=== PATIENT | male | born 1940 | race Caucasian/White ===

== ENCOUNTER 2021-05-24 15:58 | Emergency (ER) | payer OTHER ==
[2021-05-24] MEDS ORDERED: FENTANYL CITR 100 MCG/2 ML ONE (16:39)
--- NOTE | 2021-05-24 16:57 | RAD REPORT ---
EXAM DESCRIPTION: RAD - Hip Left 2 View - 05/24/2021 4:36 pm CLINICAL HISTORY: PAIN COMPARISON: No comparisons FINDINGS: Portable AP and semi lateral images of the left hip joint obtained. 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 The femoral head has been dislocated superiorly from the abbi tabular cup. No fracture of the iroquois bone identifiable. IMPRESSION: Dislocation of the left femoral prosthesis from the acetabulum.
[2021-05-24] MEDS ORDERED: HYDROMORPHONE HCL 1 MG/ML INJ ONE (16:58)
[2021-05-24] MEDS ORDERED: KETAMINE HCL 500 MG/5 ML VIAL ONE (17:16)
[2021-05-24] MEDS ORDERED: propofoL 200 MG/20 ML VIAL IV ONE (17:16)
[2021-05-24] MEDS ORDERED: NA CHLORIDE 0.9% 1,000 ML ONE (17:18)
--- NOTE | 2021-05-24 18:11 | RAD REPORT ---
EXAM DESCRIPTION: RAD - Hip Left 1 View - 05/24/2021 5:38 pm FINDINGS: Single image of the left hip joint was obtained labeled post reduction. Femoral head remains dislocated superiorly from the acetabular cup.
--- NOTE | 2021-05-24 18:58 | ER ---
Nurse's Notes [facility] Name: Brian Avalos Age: 80 yrs Sex: Male : 1940 Arrival Date: 05/24/2021 Time: 16:00 Bed 16 Private MD: Diagnosis: Dislocation of internal left hip prosthesis, initial encounter Presentation: 05/24 16:01 Chief complaint: EMS states: MECHANICAL FALL AT HOME, NO SYNCOPE. Care prior to bp arrival: Medication(s) given: FENTANYL 100 MCG IV initiated. 20 GA, in the left antecubital area. Mechanism of Injury: Fall from standing position. Trauma event details: Injury occurred in the [facility], Injury occurred: at home. Injury occurred: May 24, 2021 Injury occurred at: 15:30. 16:01 Acuity: AUNG 3 bp 16:01 Method Of Arrival: EMS: [facility] bp 18:04 Coronavirus screen: At this time, the client does not indicate any symptoms associated bp with coronavirus-19. Ebola Screen: No symptoms or risks identified at this time. Initial Sepsis Screen: Does the patient meet any 2 criteria? No. Patient's initial sepsis screen is negative. Does the patient have a suspected source of infection? No. Patient's initial sepsis screen is negative. Risk Assessment: Do you want to hurt yourself or someone else? Patient reports no desire to harm self or others. Onset of symptoms was May 24, 2021 at 15:30. Triage Assessment: 16:10 General: SEE TRAUMA NOTE. bp Trauma Activation: Consult Physician: ED Physician; Name: ; Notified At: ; Arrived At: Physician: General Surgeon; Name: ; Notified At: ; Arrived At: Physician: Radiology; Name: ; Notified At: ; Arrived At: Physician: Respiratory; Name: ; Notified At: ; Arrived At: Physician: Lab; Name: ; Notified At: ; Arrived At: Historical: - Allergies: 18:06 No Known Allergies; bp - Home Meds: 18:06 None [Active]; bp - PMHx: 18:06 Hyperlipidemia; bp - Immunization history: Last tetanus immunization: unknown. - Social history:: Smoking status: Patient denies any tobacco usage or history of. Screenin:45 Abuse screen: Denies threats or abuse. Denies injuries from another. Tuberculosis bp screening: No symptoms or risk factors identified. Primary Survey: 16:01 NO uncontrolled hemorrhage observed. A: The patient is alert. Airway: patent. bp Breathing/Chest: Respiratory pattern: regular, Respiratory effort: spontaneous, unlabored. Circulation: Skin color: pink, Skin temperature: warm, dry. Disability Alert. Exposure/Environment: There is no evidence of uncontrolled external bleeding. 18:03 Reassessment Airway Airway Patent Breathing/Chest Respiratory pattern Regular bp Respiratory effort Spontaneous Unlabored Circulation Color [place]. Assessment: 16:01 General: Appears distressed, uncomfortable, Behavior is cooperative, appropriate for bp age, anxious. Pain: Complains of pain in left hip. Neuro: No deficits noted. EENT: No deficits noted. Cardiovascular: No deficits noted. Respiratory: No deficits noted. GI: No signs and/or symptoms were reported involving the gastrointestinal system. : No signs and/or symptoms were reported regarding the genitourinary system. Derm: No deficits noted. Musculoskeletal: Circulation, motion, and sensation intact. LEFT HIP. 17:00 Reassessment: PT CONSENTED FOR CLOSED LEFT HIP REDUCTION WITH CONSCIOUS SEDATION. PT bp PLACED ON NIBP, EKG AND CONTINUOUS SP02. BVM AND CRASH CART AT B/S. PT UNABLE TO SIGN, VERBALLY WITNESSED FOR CONSENT. 18:00 Reassessment: No changes from previously documented assessment. Patient and/or family bp updated on plan of care and expected duration. Pain level reassessed. Patient is alert, oriented x 3, equal unlabored respirations, skin warm/dry/pink. DISPO ON HOLD PENDING [facility] RESPONSE Patient states feeling better. 19:26 Reassessment: REPORT TO MED YEE FOR [facility]. TRANSPORT PNDING. bp 19:26 Reassessment: Received care of pt at this time. Pt awake and alert, reports continued ad5 pain to L hip. Pt with blood noted to IV site, removed and bandage applied at this time, catheter intact. New IV est to R AC,18g, flushes with ease. Vital Signs: 16:45 BP 85 / 65; Pulse 69; Resp 16; Temp 97.5; Pulse Ox 99% ; Weight 99.79 kg; bp 17:00 BP 133 / 75; Pulse 73; Resp 17; Temp 98; Pulse Ox 98% ; bp 18:00 BP 91 / 71; Pulse 62; Resp 25; Temp 98; Pulse Ox 100% ; bp 19:30 BP 109 / 98; Pulse 63; Resp 18 S; Pulse Ox 97% on R/A; ad5 Maria Del Carmen Coma Score: 16:45 Eye Response: spontaneous(4). Verbal Response: oriented(5). Motor Response: obeys bp commands(6). Total: 15. Trauma Score (Adult): 16:45 Eye Response: spontaneous(1); Verbal Response: oriented(1); Motor Response: obeys bp commands(2); Systolic BP: > 89 mm Hg(4); Respiratory Rate: 10 to 29 per min(4); Montezuma Score: 15; Trauma Score: 12 ED Course: 16:00 Patient arrived in ED. bp 16:01 Maintain EMS IV. Dressing intact. Good blood return noted. Site clean \T\ dry. Gauge \T\ bp site: 20 GAUGE LEFT FA. 16:02 [facility] jr8 16:02 Robert Cook MD is Attending Physician. jr8 16:04 Triage completed. bp 16:36 XRAY Hip LEFT 2 view In Process Unspecified. EDMS 16:44 Cristo Link, RN is Primary Nurse. bp 16:45 Patient has correct armband on for positive identification. Bed in low position. Call bp light in reach. Side rails up X2. 17:36 initiated transfer to [facility],spoke with Giuliana. bd 17:38 XRAY Hip LEFT 1 view In Process Unspecified. EDMS 18:03 Oxygen administration via nasal cannula \T\ 2L/min. Thermoregulation: warm blanket given bp to patient. 18:29 faxed chart to [facility]. bd 19:37 Primary Nurse role handed off by Cristo Link, RN mw2 20:01 No provider procedures requiring assistance completed. Patient transferred, IV remains ad5 in place. Administered Medications: 16:15 Drug: fentaNYL (PF) 75 mcg Route: IVP; Site: left forearm; bp 18:02 Follow up: Response: Pain is decreased bp 16:35 Drug: Dilaudid (HYDROmorphone) 1 mg Route: IVP; Site: left forearm; bp 18:02 Follow up: Response: Pain is decreased bp 17:00 Drug: NS 0.9% 1000 ml Route: IV; Rate: 1000 ml; Site: left forearm; bp 19:59 Follow up: IV Status: Completed infusion; IV Intake: 1000ml ad5 17:00 Drug: Propofol 100 mg Route: IVP; Site: left forearm; bp 19:59 Follow up: Response: No adverse reaction ad5 17:00 Drug: Ketamine 100 mg Route: IVP; Site: left forearm; bp 19:59 Follow up: Response: No adverse reaction ad5 19:50 Drug: Dilaudid (HYDROmorphone) 0.5 mg Route: IVP; Site: right antecubital; ad5 19:59 Follow up: Response: No adverse reaction; RASS: Alert and Calm (0) ad5 Intake: 16:45 PO: 0ml; Total: 0ml. bp 19:59 IV: 1000ml; Total: 1000ml. ad5 Output: 16:45 Urine: 0ml; Total: 0ml. bp Outcome: 18:57 ER care complete, transfer ordered by MD. teran 20:01 Transferred to [facility]. ad5 20:01 Condition: stable 20:01 Instructed on the need for transfer, Demonstrated understanding of instructions. 20:02 Patient left the ED. ad5 Signatures: Dispatcher [employer] EDMS Ashlee Veliz Josh, PA PA jr8 Cristo Link RN RN bp Sofie Ortiz mw2 Gabriel Howard ad5 Corrections: (The following items were deleted from the chart) 18:42 18:00 Reassessment: No changes from previously documented assessment. Patient and/or bp family updated on plan of care and expected duration. Pain level reassessed. Patient is alert, oriented x 3, equal unlabored respirations, skin warm/dry/pink. DISPO ON HOLD PENDING DR MCKINNEY bp 18:43 16:45 BP 85 / 65; Pulse 69bpm; Resp 16bpm; Pulse Ox 99%; Temp 97.5F; bp bp
--- NOTE | 2021-05-24 18:58 | EDPHYS ---
Physician Documentation [facility] Name: Brian Avalos Age: 80 yrs Sex: Male : 1940 Arrival Date: 05/24/2021 Time: 16:00 Bed 16 Private MD: ED Physician Robert Cook HPI: 05/24 17:37 This 80 yrs old Male presents to ER via EMS with complaints of Fall Injury, jr8 Hip Injury. 17:37 Onset: The symptoms/episode began/occurred acutely, today. Severity of symptoms: At jr8 their worst the symptoms were moderate, in the emergency department the symptoms are unchanged. The patient has experienced similar episodes in the past, several times. The patient has not recently seen a physician. Patient stated that he had hip prosthetic put in the past February. Stated that he twisted and felt hip dislocate. Fell to ground. Denies any other injury. Historical: - Allergies: 18:06 No Known Allergies; bp - Home Meds: 18:06 None [Active]; bp - PMHx: 18:06 Hyperlipidemia; bp - Immunization history: Last tetanus immunization: unknown. - Social history:: Smoking status: Patient denies any tobacco usage or history of. ROS: 17:37 Eyes: Negative for injury, pain, redness, and discharge, ENT: Negative for injury, jr8 pain, and discharge, Neck: Negative for injury, pain, and swelling, Cardiovascular: Negative for chest pain, palpitations, and edema, Respiratory: Negative for shortness of breath, cough, wheezing, and pleuritic chest pain, Abdomen/GI: Negative for abdominal pain, nausea, vomiting, diarrhea, and constipation, Back: Negative for injury and pain, Skin: Negative for injury, rash, and discoloration, Neuro: Negative for headache, weakness, numbness, tingling, and seizure. 17:37 MS/extremity: Positive for decreased range of motion, deformity, pain, of the left hip. Exam: 17:37 Constitutional: This is a well developed, well nourished patient who is awake, alert, jr8 and in no acute distress. Neck: Trachea midline, no thyromegaly or masses palpated, and no cervical lymphadenopathy. Supple, full range of motion without nuchal rigidity, or vertebral point tenderness. No Meningismus. Cardiovascular: Regular rate and rhythm with a normal S1 and S2. No gallops, murmurs, or rubs. Normal PMI, no JVD. No pulse deficits. Respiratory: Lungs have equal breath sounds bilaterally, clear to auscultation and percussion. No rales, rhonchi or wheezes noted. No increased work of breathing, no retractions or nasal flaring. Abdomen/GI: Soft, non-tender, with normal bowel sounds. No distension or tympany. No guarding or rebound. No evidence of tenderness throughout. Back: No spinal tenderness. No costovertebral tenderness. Full range of motion. Skin: Warm, dry with normal turgor. Normal color with no rashes, no lesions, and no evidence of cellulitis. Neuro: Awake and alert, GCS 15, oriented to person, place, time, and situation. Cranial nerves II-XII grossly intact. Motor strength 5/5 in all extremities. Sensory grossly intact. 17:37 Musculoskeletal/extremity: Extremities: grossly normal except: noted in the left leg: Patient has shortening and internal rotation of left hip with pain upon manipulation. No external signs of trauma , Circulation is intact in all extremities. Sensation intact. Vital Signs: 16:45 BP 85 / 65; Pulse 69; Resp 16; Temp 97.5; Pulse Ox 99% ; Weight 99.79 kg; bp 17:00 BP 133 / 75; Pulse 73; Resp 17; Temp 98; Pulse Ox 98% ; bp 18:00 BP 91 / 71; Pulse 62; Resp 25; Temp 98; Pulse Ox 100% ; bp 19:30 BP 109 / 98; Pulse 63; Resp 18 S; Pulse Ox 97% on R/A; ad5 Maria Del Carmen Coma Score: 16:45 Eye Response: spontaneous(4). Verbal Response: oriented(5). Motor Response: obeys bp commands(6). Total: 15. Trauma Score (Adult): 16:45 Eye Response: spontaneous(1); Verbal Response: oriented(1); Motor Response: obeys bp commands(2); Systolic BP: > 89 mm Hg(4); Respiratory Rate: 10 to 29 per min(4); Maria Del Carmen Score: 15; Trauma Score: 12 Procedures: 17:37 Reduction: of the left hip, using traction, manipulation, Patient tolerated well. Post jr8 reduction film - hip prosthetic still out of place regardless of multiple attempts. Moderate sedation: Pre-procedure assessment: the patient has been NPO 4 hour(s) prior to arrival, ASA physical classification: II - mild/mod systemic disease that does not interfere with daily routines, Airway assessment: able to hyperextend neck, able to maintain airway, can open mouth without difficulty, Mallampati classification of tongue size: II - faucial pillars and soft palate can be visualized, but uvula is masked by the base of the tongue, Monitoring during procedure: gambling monitor, continuous pulse oximetry, nurse at bedside at all times, Medications employed: Ketamine, 90 mg(s), propofol , Post-procedure assessment: the patient is deeply sedated, Mahoney sedation score: 6 - no response, Respiratory status: requires supplemental oxygen to maintain acceptable oxygen saturation, a reversal agent was not used. MDM: 16:02 Patient medically screened. jr8 17:37 ED course: Attempting transfer to [place] as we are not able to put hip back in . jr8 18:55 Data reviewed: vital signs, nurses notes, radiologic studies, plain films. Data jr8 interpreted: Pulse oximetry: on room air is 100 %. Interpretation: normal. Counseling: I had a detailed discussion with the patient and/or guardian regarding: the historical points, exam findings, and any diagnostic results supporting the discharge/admit diagnosis, radiology results, the need to transfer to another facility, [facility] does not immediately have the required specialist. 05/24 16:02 Order name: XRAY Hip LEFT 2 view; Complete Time: 17:35 jr8 05/24 17:17 Order name: XRAY Hip LEFT 1 view; Complete Time: 18:32 05/24 16:35 Order name: Conscious Sedation; Complete Time: 18:02 jr8 05/24 16:35 Order name: Cardiac monitoring; Complete Time: 18:02 jr8 05/24 16:35 Order name: Oxygen; Complete Time: 18:01 jr8 Administered Medications: 16:15 Drug: fentaNYL (PF) 75 mcg Route: IVP; Site: left forearm; bp 18:02 Follow up: Response: Pain is decreased bp 16:35 Drug: Dilaudid (HYDROmorphone) 1 mg Route: IVP; Site: left forearm; bp 18:02 Follow up: Response: Pain is decreased bp 17:00 Drug: NS 0.9% 1000 ml Route: IV; Rate: 1000 ml; Site: left forearm; bp 19:59 Follow up: IV Status: Completed infusion; IV Intake: 1000ml ad5 17:00 Drug: Propofol 100 mg Route: IVP; Site: left forearm; bp 19:59 Follow up: Response: No adverse reaction ad5 17:00 Drug: Ketamine 100 mg Route: IVP; Site: left forearm; bp 19:59 Follow up: Response: No adverse reaction ad5 19:50 Drug: Dilaudid (HYDROmorphone) 0.5 mg Route: IVP; Site: right antecubital; ad5 19:59 Follow up: Response: No adverse reaction; RASS: Alert and Calm (0) ad5 Disposition: 05/25 08:44 Co-signature as Attending Physician, Robert Cook MD I agree with the assessment and kdr plan of care. Disposition Summary: 05/24/21 18:57 Transfer Ordered Transfer Location: [facility] Reason: Higher level of care jr8 Condition: Stable jr8 Problem: new jr8 Symptoms: are unchanged jr8 Accepting Physician: Dr. John (05/24/21 20:02) ad5 Diagnosis - Dislocation of internal left hip prosthesis, initial encounter jr8 Forms: - Medication Reconciliation Form jr8 - SBAR form jr8 Signatures: Dispatcher [employer] EDRobert Benitez MD MD kdr Roszak, Josh, PA PA jr8 Cristo Link RN RN Gabriel Smith ad5 Corrections: (The following items were deleted from the chart) 05/24 20:02 18:57 Dr. John jr8 ad5
[2021-05-24] MEDS ORDERED: HYDROMORPHONE HCL 0.5 MG/0.5 ML INJ ONE (20:10)
[2021-05-24 20:44] VITALS: TEMP 98
[2021-05-24 20:50] VITALS: BP 109/98; O2SAT 97
== END 2021-05-24 20:02 ==
LOC: ER 15:58
PROC: 0SSBXZZ Reposition Left Hip Joint, External Approach (ICD-10-PCS; principal; 2021-05-24)
DX: T84.021A Dislocation of internal left hip prosthesis, initial encounter (principal); W19.XXXA Unspecified fall, initial encounter; E78.5 Hyperlipidemia, unspecified
CPT/HCPCS: 73502; 73501; 99285; 27252; J2704; J3010; J1170 ×2; J7030

== ENCOUNTER 2021-06-25 23:43 | Inpatient (IN) | payer OTHER ==
[2021-06-26 00:55] LABS: Absolute Lymphocytes (CBC) 0.8 K/uL (0.7-4.9); Basophils % 0.6 % (0-1.3); Hematocrit 28.5 % (39.6-49.0); Lymphocytes % 26.6 % (15.3-44.8); MPV 7.7 fL (7.6-11.3); RBC Red Blood Cell Count 2.97 M/uL (4.33-5.43)
[2021-06-26 01:01] LABS: Potassium 4.8 mmol/L (3.5-5.1)
[2021-06-26] MEDS ORDERED: ONDANSETRON 4 MG/2 ML VIAL ONE (01:20)
[2021-06-26] MEDS ORDERED: MORPHINE 2 MG/ML SYR ONE ×3 (01:24→07:39)
[2021-06-26] MEDS ORDERED: NA CHLORIDE 0.9% 1,000 ML ONE (04:43)
--- NOTE | 2021-06-26 07:35 | EDPHYS ---
Physician Documentation [facility] Name: Brian Avalos Age: 80 yrs Sex: Male : 1940 Arrival Date: 06/25/2021 Time: 23:44 Bed 5 Private MD: ED Physician Robert Cook HPI: 06/25 23:58 This 80 yrs old Male presents to ER via EMS with complaints of Hip Injury. pkl 23:58 The patient or guardian reports pain. The complaints affect the left hip. Onset: The pkl symptoms/episode began/occurred just prior to arrival. Patient had left hip replacement done at [facility] about 4 months ago. Had dislocation of his left hip 1 month after surgery. . 06/26 00:03 Patient was reaching to put something in the cabinet tonight and felt his left pop out. pkl Historical: - Allergies: 06/25 23:51 No Known Allergies; tr6 - Home Meds: 23:51 Unable to obtain [Active]; tr6 - PMHx: 23:51 Hyperlipidemia; tr6 - PSHx: 23:51 hip replacement; tr6 - Immunization history:: Adult Immunizations up to date, Client reports receiving the 2nd dose of the Covid vaccine. - Social history:: Smoking status: unknown. ROS: 23:58 Eyes: Negative for injury, pain, redness, and discharge, ENT: Negative for injury, pkl pain, and discharge, Neck: Negative for injury, pain, and swelling, Cardiovascular: Negative for chest pain, palpitations, and edema, Respiratory: Negative for shortness of breath, cough, wheezing, and pleuritic chest pain, Abdomen/GI: Negative for abdominal pain, nausea, vomiting, diarrhea, and constipation, Back: Negative for injury and pain, : Negative for injury, bleeding, discharge, and swelling, Skin: Negative for injury, rash, and discoloration, Neuro: Negative for headache, weakness, numbness, tingling, and seizure. 23:58 MS/extremity: Positive for decreased range of motion, pain, of the left hip. Exam: 06/26 00:03 Head/Face: Normocephalic, atraumatic. Eyes: Pupils equal round and reactive to light, pkl extra-ocular motions intact. Lids and lashes normal. Conjunctiva and sclera are non-icteric and not injected. Cornea within normal limits. Periorbital areas with no swelling, redness, or edema. ENT: Nares patent. No nasal discharge, no septal abnormalities noted. Tympanic membranes are normal and external auditory canals are clear. Oropharynx with no redness, swelling, or masses, exudates, or evidence of obstruction, uvula midline. Mucous membranes moist. Neck: Trachea midline, no thyromegaly or masses palpated, and no cervical lymphadenopathy. Supple, full range of motion without nuchal rigidity, or vertebral point tenderness. No Meningismus. Chest/axilla: Normal chest wall appearance and motion. Nontender with no deformity. No lesions are appreciated. Cardiovascular: Regular rate and rhythm with a normal S1 and S2. No gallops, murmurs, or rubs. Normal PMI, no JVD. No pulse deficits. Respiratory: Lungs have equal breath sounds bilaterally, clear to auscultation and percussion. No rales, rhonchi or wheezes noted. No increased work of breathing, no retractions or nasal flaring. Abdomen/GI: Soft, non-tender, with normal bowel sounds. No distension or tympany. No guarding or rebound. No evidence of tenderness throughout. Back: No spinal tenderness. No costovertebral tenderness. Full range of motion. Skin: Warm, dry with normal turgor. Normal color with no rashes, no lesions, and no evidence of cellulitis. Neuro: Awake and alert, GCS 15, oriented to person, place, time, and situation. Cranial nerves II-XII grossly intact. Motor strength 5/5 in all extremities. Sensory grossly intact. Cerebellar exam normal. Normal gait. Musculoskeletal/extremity: Extremities: grossly normal except: noted in the left hip: decreased ROM, pain. Vital Signs: 06/25 23:49 BP 132 / 83; Pulse 78; Resp 18; Temp 98.7(O); Pulse Ox 100% on R/A; Weight 81.65 kg; tr6 Height 5 ft. 10 in. (177.80 cm); 06/26 00:29 BP 123 / 76; Pulse 77; Resp 18; Pulse Ox 99% ; ea 02:01 BP 120 / 68; Pulse 59; Resp 16; Pulse Ox 99% on R/A; em 03:22 BP 114 / 69; Pulse 61; Resp 18; Pulse Ox 99% on R/A; Pain 8/10; em 04:43 BP 133 / 79; Pulse 72; Resp 18; Pulse Ox 100% on R/A; ea 05:31 BP 115 / 66; Pulse 67; Resp 16; Pulse Ox 99% on R/A; em 06:36 BP 117 / 65; Pulse 71; Resp 16; Pulse Ox 100% on R/A; em 07:14 BP 104 / 65; Pulse 62; Resp 20 S; Temp 98.5(TE); Pulse Ox 100% on R/A; Pain 9/10; aa5 08:20 BP 108 / 64; Pulse 68; Resp 18 S; Pulse Ox 97% on R/A; aa5 09:00 BP 114 / 88; Pulse 73; Resp 16 S; Pulse Ox 96% on R/A; aa5 06/25 23:49 Body Mass Index 25.83 (81.65 kg, 177.80 cm) tr6 MDM: 06/25 23:50 Patient medically screened. pkl 06/26 07:32 Data reviewed: vital signs, nurses notes, lab test result(s), EKG, radiologic studies, pkl plain films. ED course: Talked to Dr. Fuentes, for observation under Hospitalist. 08:02 ED course: Patient continues to be stable in the ED. We are awaiting callback from the [facility]. Dr. Fuentes has been contacted and has agreed to see the patient if [facility]. 06/25 23:56 Order name: CBC with Diff pkl 06/25 23:56 Order name: Chem 7 pkl 06/25 23:56 Order name: CBC with Automated Diff; Complete Time: 03:12 EDMS 06/25 23:57 Order name: Basic Metabolic Panel; Complete Time: 03:12 EDMS 06/26 07:30 Order name: SARS-COV-2 RT PCR; Complete Time: 07:30 EDMS 06/26 10:13 Order name: Basic Metabolic Panel EDMS 06/26 10:13 Order name: Basic Metabolic Panel EDMS 06/26 10:13 Order name: Lipid Profile EDMS 06/26 10:13 Order name: Lipid Profile EDMS 06/26 10:14 Order name: CBC with Automated Diff EDMS 06/26 10:14 Order name: CBC with Automated Diff EDMS 06/26 10:14 Order name: Urinalysis EDMS 06/26 10:16 Order name: Hemoglobin A1c EDMS 06/25 23:56 Order name: Saline Lock; Complete Time: 00:12 pkl 06/25 23:56 Order name: Hip Left 2 View XRAY pkl 06/26 07:31 Order name: EKG; Complete Time: 07:32 pkl 06/26 07:31 Order name: XRAY CXR (1 view) pkl 06/26 09:51 Order name: NPO EDMS Administered Medications: 01:03 Drug: morphine 2 mg Route: IVP; Site: left antecubital; em 02:28 Follow up: Response: No adverse reaction; Marked relief of symptoms em 01:03 Drug: Zofran (Ondansetron) 4 mg Route: IVP; Site: left antecubital; em 02:28 Follow up: Response: No adverse reaction em 04:31 Drug: morphine 2 mg Route: IVP; Site: left antecubital; em 06:10 Follow up: Response: No adverse reaction; Marked relief of symptoms; Pain is decreased em 04:33 Drug: NS 0.9% 1000 ml Route: IV; Rate: 100 ml/hr; Site: left antecubital; em 07:17 Drug: morphine 2 mg Route: IVP; Site: left antecubital; aa5 Disposition Summary: 06/26/21 07:34 Hospitalization Ordered Hospitalization Status: Observation pkl Provider: Martin Weber pkwendy Condition: Stable pkl Problem: new pkl Symptoms: are unchanged pkl Bed/Room Type: Standard pkl Location: [facility] ER HOLD(06/26/21 13:45) aa5 Room Assignment: ERHOLD-(06/26/21 13:46) aa5 Diagnosis - Dislocation left hip pkl Forms: - Medication Reconciliation Form pkl - SBAR form pkl Signatures: Dispatcher [employer] EDMohsen Greer MD MD pkRobert Gold MD MD kdr Munoz, Edgar, RN RN em Cecelia Sultana RN RN iw Calderon, Audri, RN RN aa5 Analisa Goldberg RN RN tr6 Corrections: (The following items were deleted from the chart) 00:07 00:03 Patient was reaching to put something in the cabinet and felt his left pop out. pkl pkl 06:37 06:11 CORONAVIRUS+MR.LAB.BRZ ordered. EDMS EDMS 13:45 07:34 Telemetry/MedSurg (observation) pkl aa5 13:45 07:34 pkl aa5 13:46 13:45 aa5 aa5
--- NOTE | 2021-06-26 07:35 | ER ---
Nurse's Notes [facility] Name: Brian Avalos Age: 80 yrs Sex: Male : 1940 Arrival Date: 06/25/2021 Time: 23:44 Bed 5 Private MD: Diagnosis: Dislocation left hip Presentation: 06/25 23:49 Chief complaint: Patient states: pt states he was "reaching to put something in the tr6 cabinet and reached a little too far and felt his left hip pop out". Coronavirus screen: At this time, unable to obtain information related to travel outside the [place] Ebola Screen: No symptoms or risks identified at this time. Initial Sepsis Screen: Does the patient meet any 2 criteria? No. Patient's initial sepsis screen is negative. Does the patient have a suspected source of infection? No. Patient's initial sepsis screen is negative. Risk Assessment: Do you want to hurt yourself or someone else? Patient reports no desire to harm self or others. Onset of symptoms is unknown. 23:49 Method Of Arrival: EMS: [facility] tr6 23:49 Acuity: AUNG 3 tr6 Triage Assessment: 23:51 General: Appears in no apparent distress. comfortable, Behavior is calm, cooperative, tr6 appropriate for age. Pain: Complains of pain in left hip. EENT: No deficits noted. Neuro: No deficits noted. Cardiovascular: No deficits noted. Cardiovascular: Edema is 3+ to left midcalf, left ankle, left foot, right midcalf, right ankle and right foot pitting to left midcalf, left ankle, left foot, right midcalf, right ankle and right foot. Respiratory: No deficits noted. GI: No deficits noted. : No deficits noted. Derm: Skin is intact. Musculoskeletal: Capillary refill < 3 seconds, Range of motion: limited in left hip. Historical: - Allergies: 23:51 No Known Allergies; tr6 - Home Meds: 23:51 Unable to obtain [Active]; tr6 - PMHx: 23:51 Hyperlipidemia; tr6 - PSHx: 23:51 hip replacement; tr6 - Immunization history:: Adult Immunizations up to date, Client reports receiving the 2nd dose of the Covid vaccine. - Social history:: Smoking status: unknown. Screenin:53 Abuse screen: Denies threats or abuse. Denies injuries from another. Nutritional tr6 screening: No deficits noted. Tuberculosis screening: No symptoms or risk factors identified. Fall Risk None identified. Assessment: 06/26 00:40 Reassessment: reports pain in left hip, Dr. Bass notified, received VO for 2 mg morphine em and 4 mg zofran IVP x 1. 02:00 Reassessment: Patient appears in no apparent distress at this time. Patient and/or em family updated on plan of care and expected duration. Pain level reassessed. Patient is alert, oriented x 3, equal unlabored respirations, skin warm/dry/pink. 03:21 Reassessment: Patient appears in no apparent distress at this time. Patient and/or em family updated on plan of care and expected duration. Pain level reassessed. Patient is alert, oriented x 3, equal unlabored respirations, skin warm/dry/pink. 04:43 Reassessment: Patient appears in no apparent distress at this time. Patient and/or em family updated on plan of care and expected duration. Pain level reassessed. Patient is alert, oriented x 3, equal unlabored respirations, skin warm/dry/pink. 05:31 Reassessment: Patient appears in no apparent distress at this time. Patient and/or em family updated on plan of care and expected duration. Pain level reassessed. Patient is alert, oriented x 3, equal unlabored respirations, skin warm/dry/pink. [facility], will be admitted here Patient states feeling better. 06:36 Reassessment: Patient appears in no apparent distress at this time. Patient and/or em family updated on plan of care and expected duration. Pain level reassessed. Patient is alert, oriented x 3, equal unlabored respirations, skin warm/dry/pink. 07:14 Reassessment: Patient is alert, oriented x 3, equal unlabored respirations, skin aa5 warm/dry/pink. Pt c/o pain to left hip radiating to left thigh, pt rates pain a 9/10. MD was notified. . 08:40 Reassessment: Awaiting admission orders. . aa5 09:00 Reassessment: Patient is alert, oriented x 3, equal unlabored respirations, skin aa5 warm/dry/pink. Pt lying down in bed watching TV. Urinal and call light within reach. . General: Appears comfortable. Vital Signs: 06/25 23:49 BP 132 / 83; Pulse 78; Resp 18; Temp 98.7(O); Pulse Ox 100% on R/A; Weight 81.65 kg; tr6 Height 5 ft. 10 in. (177.80 cm); 06/26 00:29 BP 123 / 76; Pulse 77; Resp 18; Pulse Ox 99% ; ea 02:01 BP 120 / 68; Pulse 59; Resp 16; Pulse Ox 99% on R/A; em 03:22 BP 114 / 69; Pulse 61; Resp 18; Pulse Ox 99% on R/A; Pain 8/10; em 04:43 BP 133 / 79; Pulse 72; Resp 18; Pulse Ox 100% on R/A; ea 05:31 BP 115 / 66; Pulse 67; Resp 16; Pulse Ox 99% on R/A; em 06:36 BP 117 / 65; Pulse 71; Resp 16; Pulse Ox 100% on R/A; em 07:14 BP 104 / 65; Pulse 62; Resp 20 S; Temp 98.5(TE); Pulse Ox 100% on R/A; Pain 9/10; aa5 08:20 BP 108 / 64; Pulse 68; Resp 18 S; Pulse Ox 97% on R/A; aa5 09:00 BP 114 / 88; Pulse 73; Resp 16 S; Pulse Ox 96% on R/A; aa5 06/25 23:49 Body Mass Index 25.83 (81.65 kg, 177.80 cm) tr6 ED Course: 06/25 23:44 Patient arrived in ED. mw2 23:48 Analisa Goldberg RN is Primary Nurse. tr6 23:49 Mohsen Bass MD is Attending Physician. pkl 23:51 Triage completed. tr6 23:53 No apparent distress. Resting quietly. Awaiting ED provider evaluation. tr6 23:53 Patient has correct armband on for positive identification. Placed in gown. Bed in low tr6 position. Call light in reach. Side rails up X2. Pulse ox on. NIBP on. Door closed. Noise minimized. Visitors limited. Lights dimmed. Moved to private room. Warm blanket given. 23:53 No provider procedures requiring assistance completed. Patient maintains SpO2 tr6 saturation greater than 95% on room air. 23:54 Arm band placed on right wrist. tr6 06/26 00:10 Initial lab(s) drawn, by me, sent to lab. Inserted saline lock: in left antecubital em area, using aseptic technique. Blood collected. 01:22 Hip Left 2 View XRAY In Process Unspecified. EDMS 02:03 initiated a transfer to the [facility]. They are not accepting any transfers at this mw2 time. 02:04 initiated a transfer with Trena from [facility] Transfer Center. mw2 02:12 All [facility] campuses denied due to capacity. mw2 02:22 initiated a transfer with Pricila from [facility]. mw2 02:34 no beds at [facility]. mw2 07:00 Report received from JOSELITO Tijerina and JOSELITO Eldridge. aa5 07:08 re initiated transfer to [facility] still not talking anyone in transfer, no bed mw2 available at this time. 07:33 Martin Weber DO is Hospitalizing Provider. pkl 07:57 XRAY CXR (1 view) In Process Unspecified. EDMS 07:58 Attending Physician role handed off by Mohsen Bass MD kdr 07:58 Robert Cook MD is Attending Physician. kdr 08:18 Primary Nurse role handed off by Analisa Goldberg, RN bd 08:42 Genesis Hager, RN is Primary Nurse. aa5 10:00 Patient admitted, IV remains in place. aa5 11:43 re initiated tranfer to [facility]. bd 12:09 spoke with Rajwinder at [facility]. faxed chart to [facility]. bd Administered Medications: 01:03 Drug: morphine 2 mg Route: IVP; Site: left antecubital; em 02:28 Follow up: Response: No adverse reaction; Marked relief of symptoms em 01:03 Drug: Zofran (Ondansetron) 4 mg Route: IVP; Site: left antecubital; em 02:28 Follow up: Response: No adverse reaction em 04:31 Drug: morphine 2 mg Route: IVP; Site: left antecubital; em 06:10 Follow up: Response: No adverse reaction; Marked relief of symptoms; Pain is decreased em 04:33 Drug: NS 0.9% 1000 ml Route: IV; Rate: 100 ml/hr; Site: left antecubital; em 07:17 Drug: morphine 2 mg Route: IVP; Site: left antecubital; aa5 Outcome: 07:34 Decision to Hospitalize by Provider. pkl 10:00 Admitted to ER Hold. Please see [facility] for further documentation. aa5 10:00 Condition: stable 10:00 Instructed on the need for admit, Demonstrated understanding of instructions. 16:04 Patient left the ED. aa5 Signatures: Dispatcher [employer] EDMS Ashlee Veliz Pin, MD MD pkl Robert Cook MD MD kdr Munoz, Edgar RN RN Genesis Longo RN RN aa5 Lilliana Aguillon RN RN ea [place]brook, MyKena 2 Analisa Goldberg RN RN tr6 Corrections: (The following items were deleted from the chart) 02:06 02:03 initiated a transfer to the [facility]. They are not accepted transfers at [facility] this time. 2 06:28 02:03 initiated a transfer to the [facility]. They are not accepting transfers at [facility] this time. 2 07:24 07:00 Report received from JOSELITO Tijerina aa5 13:46 13:45 Patient left the ED. aa5 aa5
--- NOTE | 2021-06-26 08:55 | RAD REPORT ---
EXAM DESCRIPTION: RAD - Hip Left 2 View - 06/26/2021 1:22 am CLINICAL HISTORY: dislocation COMPARISON: Hip Left 1 View dated 05/24/2021; Hip Left 2 View dated 05/24/2021 FINDINGS: Portable AP and semi lateral views were obtained. Left femoral hip prosthesis component has been dislocated from the acetabular cup. No fracture or acute bone finding identifiable.
--- NOTE | 2021-06-26 09:07 | RAD REPORT ---
EXAM DESCRIPTION: RAD - Chest Single View - 06/26/2021 7:57 am CLINICAL HISTORY: Dislocation left hip, pending surgical reduction COMPARISON: Portable October 2015 TECHNIQUE: AP portable chest image was obtained 06/26/2021 7:57 am . FINDINGS: No acute lung parenchymal finding. No failure or volume overload. Heart and vasculature ar e normal. No measurable pleural effusion and no pneumothorax. No acute aortic finding. Left shoulder prosthesis in place. Old rib trauma noted on the left. Spinal hardware is in place. These changes are all similar to 2015. IMPRESSION: No acute cardiopulmonary process. No significant change from comparison study.
[2021-06-26] MEDS ORDERED: ACETAMINOPHEN 500 MG TAB PO PRN (10:08)
[2021-06-26] MEDS ORDERED: ONDANSETRON 4 MG/2 ML VIAL IV PRN (10:08)
[2021-06-26] MEDS ORDERED: MORPHINE 4 MG/ML SYR IV PRN (10:12)
--- NOTE | 2021-06-26 10:18 | P.HP ---
Certification for Inpatient Patient admitted to: Observation With expected LOS: <2 Midnights Patient will require the following post-hospital care: None Practitioner: I am a practitioner with admitting privileges, knowledge of patient current condition, hospital course, and medical plan of care. Services: Services provided to patient in accordance with Admission requirements found in Title 42 Section 412.3 of the Code of Federal Regulations <Ruth Lemus Last Filed: 06/26/21 15:55> Patient admitted to: Observation With expected LOS: <2 Midnights <IdrisshivakishoreMartin - Last Filed: 06/26/21 18:00> Patient History Date of Service: 06/26/21 Reason for admission: Left hip pain History of Present Illness: Pt is 80 year old male with a PMHx of HLD who presents with c\o of left hip pain. Pt reported that he was trying to put up something in the cabinet when he felt a sudden pain in his left hip. Patient indicated that he had a left hip dislocation 1 month ago. He reported tht he had left hip replacement 4 months ago at the [place]. Patient reported that he could partially bear weight and was quite painful. Patient rated pain in the left hip as 09\10 ad described pain as sharp in quality. Patient denies any other s\s. Symptoms are aggravated by weight bearing, movement and relieved by nothing. Patient decided to present to the hospital for medical evaluation Home medications list reviewed: Yes - Past Medical/Surgical History Diabetic: No -: HLD -: Left Hip replacement - Family History Family History: Reviewed- Non-Contributory (Reviewed and patient unaware of family history) - Social History Smoking Status: Former smoker Alcohol use: No CD- Drugs: No Caffeine use: No Place of Residence: Home <Ruth Lemus - Last Filed: 06/26/21 15:55> Date of Service: 06/26/21 - Past Medical/Surgical History Psychosocial/ Personal History: Patient lives at home. <GusMartin - Last Filed: 06/26/21 18:00> Allergies No Known Allergies Allergy (Uncoded 03/14/16 10:09) Unknown Unable to obtain Allergy (Uncoded 10/26/15 17:46) Unknown Review of Systems Unremarkable General: Unremarkable Eyes: Unremarkable ENT: Unremarkable Respiratory: Unremarkable Cardiovascular: Unremarkable Gastrointestinal: Unremarkable Genitourinary: Unremarkable Musculoskeletal: Other (Left Hip pain ) Integumentary: Unremarkable Neurological: Unremarkable Lymphatics: Unremarkable <RuddyRuth campbell Adrian - Last Filed: 06/26/21 15:55> Physical Examination - Physical Exam General: Alert, In no apparent distress, Oriented x3 HEENT: Atraumatic, PERRLA, Mucous membr. moist/pink, EOMI, Sclerae nonicteric Neck: Supple, 2+ carotid pulse no bruit, No LAD, Without JVD or thyroid abnormality Respiratory: Clear to auscultation bilaterally, Normal air movement Cardiovascular: No edema, Regular rate/rhythm, Normal S1 S2 Capillary refill: Brisk Gastrointestinal: Normal bowel sounds, Soft and benign, No tenderness Musculoskeletal: No tenderness, Other (Left hip tenderness ) Integumentary: No rashes, No breakdown Neurological: Normal gait, Normal speech, Normal strength at 5/5 x4 extr, Normal tone, Normal affect Lymphatics: No axilla or inguinal lymphadenopathy External genitalia: Deferred Rectal: Deferred - Studies Laboratory Data (last 24 hrs) 06/26/21 00:10: Sodium 138, Potassium 4.8, BUN 15, Creatinine 1.16, Glucose 87 06/26/21 00:10: WBC 3.00 L, Hgb 9.8 L, Hct 28.5 L, Plt Count 212 <RuddyKlaus campblelelvi Campbell - Last Filed: 06/26/21 15:55> - Studies Laboratory Data (last 24 hrs) 06/26/21 00:10: Sodium 138, Potassium 4.8, BUN 15, Creatinine 1.16, Glucose 87 06/26/21 00:10: WBC 3.00 L, Hgb 9.8 L, Hct 28.5 L, Plt Count 212 <Martin Weber - Last Filed: 06/26/21 18:00> Assessment and Plan - Plan --Left hip pain. Orthopedic surgeon consulted. Plans to take patient to the OR. Will keep pt NPO. Continue supportive care. --Acute pain. We will manage pain with current pain medication regimen --HLD. Continue statin when appropriate --Anemia of chronic disease. Will continue to monitor H\H and transfuse if hemoglobin is less than 7.0 --DVT prophylaxis with scds Documentation of Current Medications in the Medical Record - 18+ years old: Code: G8427 - current medications obtained, updated, or reviewed. Pain Assessment and Follow-Up - 18+ years old: Code: G8730 - pain assessment positive with standardized tool AND a follow up plan is documented. I have had discussion about advanced directives with the patient and /or family during this hospital admission. Addressed code status and /or goals of care. Spe nt more than 15 minutes. Care Plan - all patients 65+ : Code: 1123F - advance care planning discussed and documented. ACP and surrogate decision maker also documented. Case discussed with patient and nurse. . Discharge Plan: Home Plan to discharge in: 24 Hours - Advance Directives Does patient have a Living Will: No Does patient have a Durable POA for Healthcare: No - Code Status/Comfort Care Code Status Assessed: Yes Code Status: Full Code Physician Review: Patient Assessed, Agree with Above Assessment and Plan Critical Care: No <Ruth Lemus - Last Filed: 06/26/21 15:55> - Plan Case discussed with orthopedics. Orthopedics plans to take the patient to the OR to place back joint. Patient can likely be discharged tomorrow. We will monitor the patient closely. Patient seen and evaluated. Case discussed with nurse practitioner. Agree with plan of care. Time Spent Managing Pts Care (In Minutes): 55 <Martin Weber - Last Filed: 06/26/21 18:00>
[2021-06-26] MEDS ORDERED: ACETAMINOPHEN 500 MG TAB ONE (11:44)
[2021-06-26] MEDS ORDERED: MORPHINE 4 MG/ML SYR ONE (11:44)
[2021-06-26 15:47] VITALS: BMI 25.8
[2021-06-26] MEDS ORDERED: Ringers Lactate 1,000 ML IV ONE (16:37)
[2021-06-26] MEDS ORDERED: FENTANYL CITR 100 MCG/2 ML ONE (17:06)
[2021-06-26] MEDS ORDERED: SUCCINYLCHOLINE 20 MG/ML (10 ML) IV ONE (17:23)
[2021-06-26] MEDS ORDERED: propofoL 200 MG/20 ML VIAL IV ONE (17:27)
[2021-06-26] MEDS ORDERED: HYDROCODONE/APAP 5/325 MG TAB PO PRN (17:36)
--- NOTE | 2021-06-26 18:23 | RAD REPORT ---
EXAM DESCRIPTION: RAD - Pelvis - 06/26/2021 5:55 pm CLINICAL HISTORY: s/p closed reduction of L hip COMPARISON: Hip In Or dated 06/26/2021 FINDINGS: Bilateral total hip arthroplasties are noted. No dislocation is seen. No gross fracture ap preciated.
--- NOTE | 2021-06-26 18:23 | RAD REPORT ---
EXAM DESCRIPTION: RAD - Hip In Or - 06/26/2021 5:55 pm CLINICAL HISTORY: Hip Reduction COMPARISON: <Comparisons> FINDINGS: Fluoroscopy time 0.4 minutes.
[2021-06-26] MEDS: D5 0.45 NS 1,000 ML IV SCH (19:01)
[2021-06-26 19:45] LABS: Urine Appearance CLEAR (Clear); Urine Bilirubin NEGATIVE (Negative); Urine Blood NEGATIVE (Negative); Urine Color YELLOW (Yellow); Urine Glucose NEGATIVE (Negative); Urine Protein NEGATIVE (Negative); Urine Specific Gravity <=1.005 (1.005-1.030); Urine Urobilinogen 0.2 mg/dL (0.2-1.0); Urine pH 7.5 (5.0-7.0)
[2021-06-26 19:48] LABS: Urine Microscopic Reflex NO UMIC
[2021-06-26 21:44] VITALS: O2SAT 97
--- NOTE | 2021-06-27 03:43 | OP ---
Surgeon: Barrett Fuentes MD Preoperative Diagnosis: Left hip, prosthetic hip dislocation. Postoperative Diagnosis: Left hip, prosthetic hip dislocation. Procedure Performed: Closed reduction of prosthetic left hip. Hospital Course: Patient admitted on above-mentioned date where he was taken to the operative suite after having had a total hip done at the [facility] in January 2021. This is a second dislocation. It is an anterior dislocation. We are asked to close reduce this. Procedure In Detail: He was taken to the operative suite, placed in supine position, induced anesthe jaymie. , then tractioned in leg straight and internal rotation reduced it quite nicely, conc entrically reduced, and verified by C-arm. Patient tolerated the procedure well, was reversed from a nesthesia and should be in the recovery room shortly. WILLARD/TAMERA Voice ID: [id number] Report ID: [id number]
[2021-06-27] MEDS: D5 0.45 NS 1,000 ML IV SCH (05:20)
[2021-06-27 05:36] VITALS: BP 106/58; TEMP 98.5
[2021-06-27 05:42] LABS: Absolute Lymphocytes (CBC) 0.5 K/uL (0.7-4.9); Basophils % 0.7 % (0-1.3); Hematocrit 27.1 % (39.6-49.0); Lymphocytes % 11.9 % (15.3-44.8); RBC Red Blood Cell Count 2.84 M/uL (4.33-5.43)
[2021-06-27 06:01] LABS: Potassium 3.9 mmol/L (3.5-5.1)
--- NOTE | 2021-06-27 06:05 | P.DS ---
Admission Date: 06/26/21 Discharge Date: 06/27/21 Primary Care Provider: [facility] Disposition: ROUTINE DISCHARGE Discharge Condition: GOOD Reason for Admission: Left hip pain Consultations: OrthopedicsDr. Fuentes Procedures: Xray: COMPARISON: Hip Left 1 View dated 05/24/2021; Hip Left 2 View dated 05/24/2021 FINDINGS: Portable AP and semi lateral views were obtained. Left femoral hip prosthesis component has been dislocated from the acetabular cup. No fracture or acute bone finding identifiable. Surgery: Surgeon: Barrett Fuentes MD Preoperative Diagnosis: Left hip, prosthetic hip dislocation. Postoperative Diagnosis: Left hip, prosthetic hip dislocation. Procedure Performed: Closed reduction of prosthetic left hip. Hospital Course: Patient admitted on above-mentioned date where he was taken to the operative suite after having had a total hip done at the [facility] in January 2021. This is a second dislocation. It is an anterior dislocation. Post Surgery Xray: CLINICAL HISTORY: s/p closed reduction of L hip COMPARISON: Hip In Or dated 06/26/2021 FINDINGS: Bilateral total hip arthroplasties are noted. No dislocation is seen. No gross fracture appreciated. Medical Problem List: Left hip pain secondary to left femoral hip prosthesis recurrent dislocation status post closed reduction of the left hip Hyperlipidemia Anxiety disorder Brief History of Present Illness: 80 year old male presented to the emergency room with left hip pain. He was reaching something from a cabinet when he had sudden hip pain. He reports that he had hip replacement 4 months ago at the [facility]. He also reports a history of left hip dislocation about a month ago. Patient was transferred to the with reduction. In the ER patient was found to have recurrent left hip prosthesis femur dislocation. Patient admitted for further evaluation. Patient was to be transferred but the [facility] was full. Patient admitted here for further evaluation and treatment. Hospital Course: Patient presented with left hip pain secondary to left femoral hip prosthesis recurrent dislocation. Patient had hip surgery at the [facility] in January 2021. Patient had hip dislocation last month. He was transferred to the [facility] with treatment. Patient had closed reduction at that time. Patient presented with left hip pain and found to have recurrent dislocation. Patient was to be transferred to the for treatment. No beds available. Patient was seen and evaluated by orthopedics. Orthopedics performed closed reduction of the left hip. Patient has done well postoperatively. Patient will continue with current brace at this time. Recommend follow-up with [facility] specialist in 1 week to follow-up his hospitalization and continue his care. Patient may require further evaluation and treatment to prevent dislocation. Fall precautions in place. Commend follow-up with PCP in 1 week to follow-up hospitalization. Patient with hyperlipidemia and anxiety disorder. At discharge patient will continue with his current medications. Vital Signs/Physical Exam: Temp Pulse Resp BP Pulse Ox 98.5 F 66 18 106/58 L 96 06/27/21 04:00 06/27/21 04:00 06/27/21 04:00 06/27/21 04:00 06/27/21 04:00 General: Alert, In no apparent distress, Oriented x3, Cooperative HEENT: Atraumatic Neck: Supple Respiratory: Clear to auscultation bilaterally, Normal air movement Cardiovascular: Normal pulses, Regular rate/rhythm Gastrointestinal: Normal bowel sounds, No ascites, No tenderness, No masses, No rebound, No guarding Musculoskeletal: No erythema, No tenderness, No warmth Integumentary: No tenderness/swelling, Other (Brace to the left hip in place) Neurological: Normal speech, Normal strength at 5/5 x4 extr, Normal tone, Normal affect Laboratory Data at Discharge: WBC 4.60 K/uL (4.3-10.9) D 06/27/21 05:12 Hgb 9.4 g/dL (13.6-17.9) L 06/27/21 05:12 Hct 27.1 % (39.6-49.0) L 06/27/21 05:12 Plt Count 197 K/uL (152-406) 06/27/21 05:12 Sodium 136 mmol/L (136-145) 06/27/21 05:12 Potassium 3.9 mmol/L (3.5-5.1) 06/27/21 05:12 BUN 10 mg/dL (7-18) 06/27/21 05:12 Creatinine 0.91 mg/dL (0.55-1.3) 06/27/21 05:12 Glucose 106 mg/dL (74-106) 06/27/21 05:12 Triglycerides 111 mg/dL (<150) 06/27/21 05:12 Cholesterol 162 mg/dL (<200) 06/27/21 05:12 HDL Cholesterol 56 mg/dL (40-60) 06/27/21 05:12 Cholesterol/HDL Ratio 2.89 06/27/21 05:12 Home Medications: Bupropion HCl [Wellbutrin Sr] 1 tab PO DAILY 06/26/21 Buspirone HCl [Buspar] 10 mg PO BID 06/26/21 Cholecalciferol (Vitamin D3) [Vitamin D3] 0.5 tab PO DAILY 06/26/21 Cyanocobalamin [Vitamin B-12*] 1 tab PO DAILY 06/26/21 Omeprazole 20 mg PO BID 06/26/21 Sertraline [Zoloft*] 2 tab PO DAILY 06/26/21 Physician Discharge Instructions: PROBLEM: Closed reduction of left hip dislocation GOAL: Clear understanding of disease process INSTRUCTIONS: Patient presented with left hip pain secondary to left femoral hip prosthesis recurrent dislocation. Patient had hip surgery at the [facility] in January 2021. Patient had hip dislocation last month. He was transferred to the [facility] with treatment. Patient had closed reduction at that time. Patient presented with left hip pain and found to have recurrent dislocation. Patient was to be transferred to the for treatment. No beds available. Patient was seen and evaluated by orthopedics. Orthopedics performed closed reduction of the left hip. Patient has done well postoperatively. Patient will continue with current brace at this time. Recommend follow-up with [facility] specialist in 1 week to follow-up his hospitalization and continue his care. Patient may require further evaluation and treatment to prevent dislocation. Fall precautions in place. Commend follow-up with PCP in 1 week to follow-up hospitalization. Patient with hyperlipidemia and anxiety disorder. At discharge patient will continue with his current medications. Diet: Regular Activity: Fall precautions IMMUNIZATION Influenza Vaccine Indicated: Influenza Vaccine Given: Date Given: Pneumonia Vaccine Indicated: No Pneumonia Vaccine Given: Date Given: Diet: AHA Activity: Fall precautions Followup: Barrett Fuentes MD [ACTIVE - CAN ADMIT] - Time spent managing pt's care (in minutes): 55
[2021-06-27] MEDS ORDERED: Omeprazole [Omeprazole] 20 MG Capsule.Dr PO SCH (09:00)
[2021-06-27] MEDS ORDERED: SERTRALINE HCL 100 MG TAB PO SCH (09:00)
[2021-06-27] MEDS ORDERED: HOME MED 1 EA UNK (Cholecalciferol (Vitamin D3) [Vitamin D3] 50 MCG Capsule) PO SCH (09:00)
[2021-06-27] MEDS ORDERED: POTASSIUM CL SA 10 MEQ TAB PO ONE (09:00)
[2021-06-27] MEDS ORDERED: CYANOCOBALAMIN 1,000 MCG TAB PO SCH (09:00)
[2021-06-27] MEDS ORDERED: BUPROPION HCL 100 MG PO SCH (09:00)
== END 2021-06-27 08:30 | disposition home or self-care (01) | DRG 561 ==
LOC: ER 23:43 → ERHOLD 06-26 09:52 → 2ND 06-26 16:59 → OBSVTOIN 06-26 17:25
PROVIDERS: ADMIT Family Medicine; ATTEND Family Medicine
PROC: 0SWBXJZ Revision of Synthetic Substitute in Left Hip Joint, External Approach (ICD-10-PCS; principal; 2021-06-26 16:30)
DX: T84.021A Dislocation of internal left hip prosthesis, initial encounter (principal); E78.5 Hyperlipidemia, unspecified; F41.9 Anxiety disorder, unspecified; X50.1XXA Overexertion from prolonged static or awkward postures, initial encounter; Y92.009 Unspecified place in unspecified non-institutional (private) residence as the place of occurrence of the external cause; D63.8 Anemia in other chronic diseases classified elsewhere; Z20.822 Contact with and (suspected) exposure to COVID-19
CPT/HCPCS: 36415; 71045; 72170; 73530; 80048; 80061; 81003; 83036; 85025; 93005; 94760; 96374; 96375; 99285; G0378; J0330; J2270; J2405; J2704; J3010; J7030; J7120; J7799; U0003

== ENCOUNTER 2021-07-14 19:49 | Emergency (ER) | payer OTHER ==
--- NOTE | 2021-07-14 21:15 | RAD REPORT ---
EXAM DESCRIPTION: RAD - Pelvis - 07/14/2021 8:54 pm CLINICAL HISTORY: Pelvic pain FINDINGS: Bilateral hip arthroplasties have been performed. Left femoral prosthesis is dislocated superior laterally. No fracture visualized
[2021-07-14] MEDS ORDERED: propofoL 200 MG/20 ML VIAL IV ONE ×2 (21:23→22:20)
[2021-07-14] MEDS ORDERED: FENTANYL CITR 100 MCG/2 ML ONE ×3 (21:33→22:57)
[2021-07-14] MEDS ORDERED: NA CHLORIDE 0.9% 1,000 ML ONE ×2 (21:35→22:21)
[2021-07-15] MEDS ORDERED: MORPHINE 4 MG/ML SYR ONE ×2 (00:09→02:01)
[2021-07-15] MEDS ORDERED: ONDANSETRON 4 MG/2 ML VIAL ONE (00:09)
--- NOTE | 2021-07-15 00:09 | ER ---
Nurse's Notes [facility] Name: Brian Avalos Age: 80 yrs Sex: Male : 1940 Arrival Date: 07/14/2021 Time: 20:02 Bed 3 Private MD: Diagnosis: Left anterior femoral prosthesis dislocation Presentation: 07/14 20:03 Chief complaint: EMS states: Patient had arms outstretched overhead while standing and lp1 felt left hip dislocate, no trauma or fall; reports left hip surgery about 2 months ago. Coronavirus screen: Client denies travel out of the [place] in the last 14 days. At this time, the client does not indicate any symptoms associated with coronavirus-19. Ebola Screen: No symptoms or risks identified at this time. Initial Sepsis Screen: Does the patient meet any 2 criteria? No. Patient's initial sepsis screen is negative. Does the patient have a suspected source of infection? No. Patient's initial sepsis screen is negative. Risk Assessment: Do you want to hurt yourself or someone else? Patient reports no desire to harm self or others. Onset of symptoms was July 14, 2021. 20:03 Method Of Arrival: EMS: [facility] lp1 20:03 Acuity: AUNG 3 lp1 Historical: - Allergies: 20:05 No Known Allergies; lp1 - PMHx: 20:05 Hyperlipidemia; lp1 - PSHx: 20:05 hip replacement; lp1 - Immunization history:: Adult Immunizations up to date. - Social history:: Smoking status: Patient denies any tobacco usage or history of. Screenin:05 Abuse screen: Denies threats or abuse. Denies injuries from another. Nutritional lp1 screening: No deficits noted. Tuberculosis screening: No symptoms or risk factors identified. Fall Risk None identified. Assessment: 20:15 General: Appears uncomfortable, Behavior is appropriate for age. Pain: Complains of lp1 pain in left hip Pain currently is 6 out of 10 on a pain scale. Neuro: Level of Consciousness is awake, alert, obeys commands, Oriented to person, place, time, situation. Cardiovascular: Patient's skin is warm and dry. Pulses are palpable in right dorsalis pedis artery and left dorsalis pedis artery. Respiratory: Respiratory effort is even, unlabored. GI: No signs and/or symptoms were reported involving the gastrointestinal system. : No signs and/or symptoms were reported regarding the genitourinary system. EENT: No signs and/or symptoms were reported regarding the EENT system. Derm: Skin is intact, Skin is dry, Skin is normal. Musculoskeletal: Circulation, motion, and sensation intact. Reports pain in left hip. 21:40 Reassessment: Unsuccessful attempt with reduction of left femoral hip, BROOKE Chiu and Dr. haydee Ramirez at bedside. 22:24 Reassessment: Patient is alert, oriented x 3, equal unlabored respirations, skin lp1 warm/dry/pink. Dr. Alvarez at bedside to discuss care with patient. 23:55 Reassessment: Patient aware of pending transfer to [facility], BROOKE Chiu at bedside. lp1 07/15 01:30 Reassessment: Patient is alert, oriented x 3, equal unlabored respirations, skin lp1 warm/dry/pink. Patient reports pain returning to left hip at this time; Provider notified. 01:30 Cardiovascular: Pulses are palpable in right dorsalis pedis artery and left dorsalis lp1 pedis artery. 01:50 Reassessment: EMS at bedside. lp1 Vital Signs: 07/14 20:03 BP 109 / 70; Pulse 61; Resp 18; Temp 98.1(O); Pulse Ox 100% on R/A; Weight 77.11 kg lp1 (R); Height 5 ft. 10 in. (177.80 cm); Pain 1/10; 21:00 lp1 21:48 BP 115 / 64; Pulse 58; Resp 12; Pulse Ox 99% on R/A; lp1 22:30 BP 130 / 78; Pulse 63; Resp 16; Temp 97.9; Pulse Ox 100% on R/A; lp1 22:35 lp1 07/15 01:45 BP 109 / 63; Pulse 59; Resp 15; Pulse Ox 99% on R/A; lp1 07/14 20:03 Body Mass Index 24.39 (77.11 kg, 177.80 cm) lp1 07/14 21:00 See Conscious Sedation Flowsheet lp1 22:35 See Conscious Sedation Flowsheet for further vitals lp1 ED Course: 20:02 Patient arrived in ED. lp1 20:05 Triage completed. lp1 20:05 Arm band placed on right wrist. lp1 20:05 Patient has correct armband on for positive identification. Call light in reach. Side lp1 rails up X2. Pulse ox on. NIBP on. 20:08 Aram Jaquez PA is PHCP. jmm 20:08 Marco A Ramirez MD is Attending Physician. m 20:19 Mela Burton, JOSELITO is Primary Nurse. lp1 20:32 Inserted saline lock: 20 gauge in right antecubital area, using aseptic technique. oe 20:54 Pelvis XRAY In Process Unspecified. EDMS 21:00 Assist provider with reduction of left pathologic or non traumatic hip using lp1 manipulation, Set up for procedure. Performed by Aram [facility]. 21:48 Tried to initiate transfer at the [facility] with Lila. Was denied and informed that tt3 they are at capacity so they would have to deny the transfer request. 22:35 Assist provider with reduction of left pathologic or non traumatic hip using lp1 manipulation, Set up for procedure. Performed by Benjamin Alvarez MD. 23:01 Hip Left 1 View XRAY In Process Unspecified. EDMS 23:05 Initiated transfer at [facility] with Noemy Story. Call was connected with Aram ttBROOKE Page, pt provider for further consultation. 23:38 Noemy Story Called back with their orthopedic surgeon to speak with BROOKE Ruiz, tt3 pt provider for consultation regarding the transfer request. 07/15 00:23 Updated Noemy with pt covid results. Requested they be faxed to . tt3 00:32 Noemy Story called back to give admin approval. The pt is going to [facility] to [place] [address] Van is the accepting physician and accepted at 23:42. Nurse to call report to . Noemy asked for a facesheet to be faxed to [phone]. 02:15 Patient transferred, IV remains in place. lp1 Administered Medications: 07/14 21:20 Drug: NS 0.9% 1000 ml Route: IV; Rate: 1 bolus; Site: right antecubital; lp1 22:30 Follow up: IV Status: Completed infusion; IV Intake: 1000ml lp1 21:20 Drug: fentaNYL (PF) 25 mcg Route: IVP; Site: right antecubital; lp1 21:48 Follow up: Response: No adverse reaction lp1 21:21 Drug: Propofol 40 mg Route: IVP; Site: right antecubital; lp1 21:48 Follow up: Response: No adverse reaction lp1 21:31 Drug: Propofol 160 mg Route: IVP; Site: right antecubital; lp1 21:48 Follow up: Response: No adverse reaction lp1 22:36 Drug: fentaNYL (PF) 50 mcg Route: IVP; Site: right antecubital; lp1 23:15 Follow up: Response: No adverse reaction lp1 22:48 CANCELLED (changed dosagee): fentaNYL (PF) 25 mcg IVP once; RASS on ADMIN: Combtv4, lp1 Very Agttd3, Agttd2, Rstlss1, AlertClm0, Drwsy-1, Lt Sdtn-2, Mod Sdtn-3, Dp Sdtn-4, UnArsble-5 22:50 Drug: Propofol 250 mg {Note: total given during conscious sedation .} Route: IVP; Site: lp1 right antecubital; 23:15 Follow up: Response: No adverse reaction lp1 23:54 Drug: Zofran (Ondansetron) 4 mg {Note: Verbal order by PA. Aram} Route: IVP; Site: lp1 right antecubital; 07/15 01:00 Follow up: Response: No adverse reaction lp1 07/14 23:55 Drug: morphine 4 mg {Note: Verbal order by PA. Aram} Route: IVP; Site: right lp1 antecubital; 07/15 01:00 Follow up: Response: Pain is decreased lp1 01:43 Drug: morphine 4 mg Route: IVP; Site: right antecubital; lp1 02:16 Follow up: Response: Pain is decreased lp1 Intake: 07/14 22:30 IV: 1000ml; Total: 1000ml. lp1 Output: 07/15 02:00 Urine: 550ml (Voided); Total: 550ml. lp1 Outcome: 00:08 ER care complete, transfer ordered by MD. quintero 02:15 Transferred by ground EMS to [facility], Transfer form completed. lp1 X-rays sent w/ patient. 02:15 Condition: stable 02:15 Instructed on the need for transfer. 02:17 Patient left the ED. lp1 Signatures: Dispatcher [employer] EDMS Aram Jaquez PA PA jmm Pena, Laura, RN RN lp1 Kobe Maria Tyler tt3 Corrections: (The following items were deleted from the chart) 07/14 23:53 20:03 BP 109 / 70; Pulse 61bpm; Resp 18bpm; Pulse Ox 100% RA; 77.11 kg Reported; Height lp1 5 ft. 10 in.; BMI: 24.3; Pain 1/10; lp1
--- NOTE | 2021-07-15 00:09 | EDPHYS ---
Physician Documentation [facility] Name: Brian Avalos Age: 80 yrs Sex: Male : 1940 Arrival Date: 07/14/2021 Time: 20:02 Bed 3 Private MD: ED Physician Marco A Ramirez HPI: 07/14 20:08 This 80 yrs old Male presents to ER via EMS with complaints of Hip Injury. jmm 20:08 The patient or guardian reports an injury, pain, possible dislocation. Onset: The jmm symptoms/episode began/occurred acutely, just prior to arrival. Modifying factors: The symptoms are alleviated by nothing, the symptoms are aggravated by nothing. Associated signs and symptoms: Pertinent negatives: None. The patient has experienced similar episodes in the past. This is a 80-year-old male with history of hyperlipidemia 2 months status post left hip arthroplasty. Patient presents to the ED with concerns for dislocation of the left hip. Patient states this occurred while standing and turning and reaching up to place cereal in a cabinet. Patient states this occurred earlier this month and he was admitted to the hospital for a surgical reduction. Patient denies head injury.. Historical: - Allergies: 20:05 No Known Allergies; lp1 - PMHx: 20:05 Hyperlipidemia; lp1 - PSHx: 20:05 hip replacement; lp1 - Immunization history:: Adult Immunizations up to date. - Social history:: Smoking status: Patient denies any tobacco usage or history of. ROS: 20:08 Constitutional: Negative for fever, chills, and weight loss, Cardiovascular: Negative jmm for chest pain, palpitations, and edema, Respiratory: Negative for shortness of breath, cough, wheezing, and pleuritic chest pain. 20:08 MS/extremity: Positive for injury or acute deformity. 20:08 All other systems are negative. Exam: 20:08 Constitutional: This is a well developed, well nourished patient who is awake, alert, jmm and in no acute distress. Head/Face: atraumatic. Eyes: EOMI, no conjunctival erythema appreciated ENT: Moist Mucus Membranes Neck: Trachea midline, Supple Chest/axilla: Normal chest wall appearance and motion. Cardiovascular: Regular rate and rhythm. No edema appreciated Respiratory: Normal respirations, no respiratory distress appreciated Abdomen/GI: Non distended, soft Back: Normal ROM Skin: General appearance color normal 20:08 Musculoskeletal/extremity: ROM: Left leg is shortened, full dorsalis pulses appreciated, compartments are soft, neurovascular intact. 20:08 Skin: Appearance: Color: normal in color. 20:08 Neuro: Orientation: is normal, Mentation: is normal, Memory: is normal. 20:08 Psych: Behavior/mood is pleasant, cooperative. Vital Signs: 20:03 BP 109 / 70; Pulse 61; Resp 18; Temp 98.1(O); Pulse Ox 100% on R/A; Weight 77.11 kg lp1 (R); Height 5 ft. 10 in. (177.80 cm); Pain /; 21:00 lp1 21:48 BP 115 / 64; Pulse 58; Resp 12; Pulse Ox 99% on R/A; lp1 22:30 BP 130 / 78; Pulse 63; Resp 16; Temp 97.9; Pulse Ox 100% on R/A; lp1 22:35 1 07/15 01:45 BP 109 / 63; Pulse 59; Resp 15; Pulse Ox 99% on R/A; lp1 07/14 20:03 Body Mass Index 24.39 (77.11 kg, 177.80 cm) 1 07/14 21:00 See Conscious Sedation Flowsheet lp1 22:35 See Conscious Sedation Flowsheet for further vitals lp1 Procedures: 07/15 00:04 Reduction: of the left hip, using traction, manipulation, Patient tolerated well. Post [facility] reduction film - Still anteriorly displaced. MDM: 07/14 20:08 Patient medically screened. [facility] 07/15 00:04 Data reviewed: vital signs, nurses notes. Counseling: I had a detailed discussion with [facility] the patient and/or guardian regarding: the historical points, exam findings, and any diagnostic results supporting the discharge/admit diagnosis, radiology results, the need for outpatient follow up, the need to transfer to another facility. 00:04 ED course: I consulted with Dr. Calin Alvarez who came to the ED for attempt at [facility] closed reduction. This was unsuccessful. Dr. Alvarez recommended transfer due to need for revision of hip arthroplasty. I discussed the patient with Dr. yang whom accepted the patient to his service at [facility] in [facility]. 07/15 00:11 Order name: CBC with Diff; Complete Time: 00:45 jmm 07/14 20:09 Order name: Pelvis XRAY; Complete Time: 21:35 jmm 07/14 22:47 Order name: Hip Left 1 View XRAY lp1 07/15 00:11 Order name: BMP; Complete Time: 00:49 jmm 07/15 00:22 Order name: SARS-COV-2 RT PCR; Complete Time: 00:25 EDMS 07/14 20:09 Order name: Saline Lock; Complete Time: 20:20 jmm 07/14 20:09 Order name: Conscious Sedation; Complete Time: 21:46 jmm 07/14 20:09 Order name: Cardiac monitoring; Complete Time: 20:32 jmm Administered Medications: 07/14 21:20 Drug: NS 0.9% 1000 ml Route: IV; Rate: 1 bolus; Site: right antecubital; lp1 22:30 Follow up: IV Status: Completed infusion; IV Intake: 1000ml lp1 21:20 Drug: fentaNYL (PF) 25 mcg Route: IVP; Site: right antecubital; lp1 21:48 Follow up: Response: No adverse reaction lp1 21:21 Drug: Propofol 40 mg Route: IVP; Site: right antecubital; lp1 21:48 Follow up: Response: No adverse reaction lp1 21:31 Drug: Propofol 160 mg Route: IVP; Site: right antecubital; lp1 21:48 Follow up: Response: No adverse reaction lp1 22:36 Drug: fentaNYL (PF) 50 mcg Route: IVP; Site: right antecubital; lp1 23:15 Follow up: Response: No adverse reaction lp1 22:48 CANCELLED (changed dosagee): fentaNYL (PF) 25 mcg IVP once; RASS on ADMIN: Combtv4, lp1 Very Agttd3, Agttd2, Rstlss1, AlertClm0, Drwsy-1, Lt Sdtn-2, Mod Sdtn-3, Dp Sdtn-4, UnArsble-5 22:50 Drug: Propofol 250 mg {Note: total given during conscious sedation .} Route: IVP; Site: lp1 right antecubital; 23:15 Follow up: Response: No adverse reaction lp1 23:54 Drug: Zofran (Ondansetron) 4 mg {Note: Verbal order by PA. Aram} Route: IVP; Site: lp1 right antecubital; 07/15 01:00 Follow up: Response: No adverse reaction lp1 07/14 23:55 Drug: morphine 4 mg {Note: Verbal order by PA. Aram} Route: IVP; Site: right lp1 antecubital; 07/15 01:00 Follow up: Response: Pain is decreased lp1 01:43 Drug: morphine 4 mg Route: IVP; Site: right antecubital; lp1 02:16 Follow up: Response: Pain is decreased lp1 Disposition: 03:19 Co-signature as Attending Physician, Marco A Ramirez MD I agree with the assessment and [facility] plan of care. Disposition Summary: 07/15/21 00:08 Transfer Ordered Transfer Location: [facility] Reason: Higher level of care jmm Condition: Stable jmm Problem: an acute exacerbation jmm Symptoms: are unchanged jmm Accepting Physician: CORDELL(07/15/21 02:17) lp1 Diagnosis - Left anterior femoral prosthesis dislocation [facility] Forms: - Medication Reconciliation Form jmm - SBAR form [facility] Signatures: Dispatcher [employer] EDMS Aram Jaquez PA PA jmm Pena, Laura, RN RN lp1 Marco A Ramirez MD MD [facility] Corrections: (The following items were deleted from the chart) 07/14 22:48 22:47 fentaNYL (PF) 25 mcg IVP once; RASS on ADMIN: Combtv4, Very Agttd3, Agttd2, lp1 Rstlss1, AlertClm0, Drwsy-1, Lt Sdtn-2, Mod Sdtn-3, Dp Sdtn-4, UnArsble-5 ordered. lp1 23:29 23:11 CORONAVIRUS+MR.LAB.BRZ ordered. EDNH EDMS 07/15 02:17 00:08 CORDELL quintero 1
[2021-07-15 00:34] LABS: Absolute Lymphocytes (CBC) 0.6 K/uL (0.7-4.9); Basophils % 1.4 % (0-1.3); Hematocrit 27.4 % (39.6-49.0); MPV 7.9 fL (7.6-11.3); RBC Red Blood Cell Count 2.92 M/uL (4.33-5.43)
[2021-07-15 00:48] LABS: Potassium 3.9 mmol/L (3.5-5.1)
[2021-07-15 02:26] VITALS: TEMP 97.9
[2021-07-15 02:27] VITALS: BP 109/63; O2SAT 99
--- NOTE | 2021-07-15 02:55 | CON ---
Date of Consultation: 07/14/2021 History Of Present Illness: This is my first time seeing this patient to my knowledge. He is a 77-y ear-old gentleman, who per his report approximately 3 months ago underwent a left total hip arthropla sty. According to his history, shortly after that he sustained a dislocation to his hip, which was a pparently treated at an outside facility. Shortly after that, he sustained another dislocation of hi s left hip. This one was documented by the operative surgeon as being an anterior dislocation. This required operative intervention for complete sedation and closed reduction in the operating room. A ccording to the patient, he then went to the to the [facility] where he was given an orthosis for dislocation and apparently today he was reaching up into his cabinet and had another dislocation. This one was also anterior. Physical Examination: He is neurovascularly intact. He has a well-healed scar on the lateral aspect of his hip. He holds his hip and slightly shortened in an external rotation. Diagnostic Studies: X-rays were reviewed, which revealed a superiorly dislocated total hip arthropla sty with external rotation of the femur indicative of an anterior dislocation. I spoke with the surg michel, who treated him here on the second and he said that he took him to the operating room and reduce d some extension and he expressed that he did have him go back to [facility] for treatme nt, which apparently was a brace. After verbal and written informed consent was obtained, the patient undergoes sedation for the third time, having 2 attempted reductions in the emergency room by the emergency room staff. I attempted t he third time. He is sedated as much possible. He still does have some dorsiflexion of foot with tr action as well as painful response, although did not feel comfortable giving any more sedation than t hat with retraction, gentle rotation, both extension as well as a small amount of abduction, and did not feel a satisfying clunk or filling of reduction. X-rays brought in and found to be still disloca kwadwo and other x-rays done with a significant amount of traction. This demonstrated that more or less purged, but still had some distance to go before relocation occurs, unknown whether or not something is blocking the reduction. Assessment: This is a 77-year-old male, now with at least a third time dislocation of his left hip, which was done a few months ago. This re-dislocated despite the use of an orthosis given to him by [facility]. At this point, his last dislocation was approximately 18 days ago. This is obviously a hip, which needs revision. Plan: We will attempt transfer to a facility that can facilitate hip revision surgery. All the opti ons here would be to take him to the operating room again for the second time this month for closed r eduction and hopes that would work. I think it would be unwise to proceed with an open reduction as we are not really able to perform revision hip arthroplasty for unstable hips at this institution, es pecially on the weekend. An open procedure would be the first of obvious additional other open proce dures. I have spoken with the emergency room staff, who will try to get him transferred to a [facility], gave the name of several revision specialists, see whether or not they will be able to take him. Obviously with COVID situation, it is very difficult for them to transfer. Now at this p oint, he does have an anterior dislocation of the hip, which is not reducible in the Emergency Depart ment and need a revision. /TAMERA Voice ID: [id number] Report ID: [id number]
--- NOTE | 2021-07-15 09:26 | RAD REPORT ---
EXAM DESCRIPTION: RAD - Hip Left 1 View - 07/14/2021 11:02 pm CLINICAL HISTORY: Left hip dislocation FINDINGS: Persistence of left femoral prosthesis dislocation. No fracture is seen
== END 2021-07-15 02:17 | disposition short-term general hospital (02) ==
LOC: ER 19:49
PROC: 0SWSXJZ Revision of Synthetic Substitute in Left Hip Joint, Femoral Surface, External Approach (ICD-10-PCS; principal; 2021-07-15)
DX: T84.028A Dislocation of other internal joint prosthesis, initial encounter (principal); Z20.822 Contact with and (suspected) exposure to COVID-19
CPT/HCPCS: 96361; 85025; 80048; 36415; 72170; 73501; 96375; 96374; 99285; 27266; U0003; J2704 ×2; J3010 ×3; J7030 ×2

== ENCOUNTER 2024-03-29 12:23 | Emergency (ER) | payer OTHER ==
[2024-03-29] MEDS ORDERED: NA CHLORIDE 0.9% 1,000 ML ONE (12:55)
[2024-03-29 13:12] LABS: Absolute Lymphocytes (CBC) 0.4 K/uL (0.7-4.9); Absolute Monocytes 0.5 K/uL (0.1-1.3); Absolute Neutrophil 4.6 K/uL (1.8-8.0); Basophils % 0.3 % (0-1.3); Eosinophils % 0.3 % (0-4.4); Hematocrit 30.9 % (39.6-49.0); Hemoglobin 10.8 g/dL (13.6-17.9); Lymphocytes % 6.8 % (15.3-44.8); MCH 33.6 pg (27.0-35.0); MCHC 34.9 g/dL (32.0-36.0); MCV 96.4 fL (80-100); Monocytes % 9.5 % (3.3-12.3); Neutrophils % 83.1 % (41.7-73.7); Platelets 189 thou/uL (152-406); RBC Red Blood Cell Count 3.21 M/uL (4.33-5.43)
[2024-03-29 13:19] LABS: Specific Gravity 1.006 (1.005-1.030); Urine Bilirubin NEGATIVE (Negative); Urine Blood Negative (Negative); Urine Clarity Clear (Clear); Urine Color Colorless (Yellow); Urine Glucose NEGATIVE (Negative); Urine Ketones NEGATIVE (Negative); Urine Microscopic Reflex YN NO UMIC; Urine Nitrite NEGATIVE (Negative); Urine Protein NEGATIVE (Negative); Urine Urobilinogen Normal (Normal); Urine pH 7.5 (5.0-7.0)
[2024-03-29 13:19] LABS: PT Prothrombin Time 13.4 SECONDS (9.5-12.5); Protime INR 1.23
--- NOTE | 2024-03-29 13:24 | EDPHYS ---
Physician Documentation [facility] Name: Brian Bailey Age: 83 yrs Sex: Male : 1940 Arrival Date: 03/29/2024 Time: 12:23 Bed 4 Private MD: ED Physician Maximilian Freedman HPI: 03/29 13:20 This 83 yrs old Male presents to ER via EMS with complaints of Fall Injury, nikhil Hip Pain. 13:20 Details of fall: The patient fell from an upright position, while standing, while nikhil walking. Onset: The symptoms/episode began/occurred just prior to arrival. Associated injuries: The patient sustained right hip, decreased range of motion, painful injury. Historical: - Allergies: 12:33 Iodine; ss - Home Meds: 12:33 sertraline oral [Active]; latanoprost (bulk) [Active]; ss - PMHx: 12:33 Hyperlipidemia; ss - PSHx: 12:33 Bilateral hip replacement (Hyperlipidemia); ss - Immunization history:: Client reports receiving the 2nd dose of the Covid vaccine. - Infectious Disease History:: Denies. - Social history:: Smoking status: Patient denies any tobacco usage or history of. - Family history:: not pertinent. ROS: 13:20 Constitutional: Negative for fever, chills, and weight loss, Eyes: Negative for injury, nikhil pain, redness, and discharge, ENT: Negative for injury, pain, and discharge, Neck: Negative for injury, pain, and swelling, Cardiovascular: Negative for chest pain, palpitations, and edema, Respiratory: Negative for shortness of breath, cough, wheezing, and pleuritic chest pain, Abdomen/GI: Negative for abdominal pain, nausea, vomiting, diarrhea, and constipation, Back: Negative for injury and pain, : Negative for injury, bleeding, discharge, and swelling, Skin: Negative for injury, rash, and discoloration, Neuro: Negative for headache, weakness, numbness, tingling, and seizure, Psych: Negative for depression, anxiety, suicide ideation, homicidal ideation, and hallucinations, Allergy/Immunology: Negative for hives, rash, and allergies, Endocrine: Negative for neck swelling, polydipsia, polyuria, polyphagia, and marked weight changes, Hematologic/Lymphatic: Negative for swollen nodes, abnormal bleeding, and unusual bruising, 13:20 MS/extremity: Positive for injury or acute deformity, decreased range of motion, pain, of the right hip, Exam: 13:20 Constitutional: This is a well developed, well nourished patient who is awake, alert, nikhil and in no acute distress. Head/Face: Normocephalic, atraumatic. Eyes: Pupils equal round and reactive to light, extra-ocular motions intact. Lids and lashes normal. Conjunctiva and sclera are non-icteric and not injected. Cornea within normal limits. Periorbital areas with no swelling, redness, or edema. ENT: Nares patent. No nasal discharge, no septal abnormalities noted. Tympanic membranes are normal and external auditory canals are clear. Oropharynx with no redness, swelling, or masses, exudates, or evidence of obstruction, uvula midline. Mucous membranes moist. Neck: Trachea midline, no thyromegaly or masses palpated, and no cervical lymphadenopathy. Supple, full range of motion without nuchal rigidity, or vertebral point tenderness. No Meningismus. Chest/axilla: Normal chest wall appearance and motion. Nontender with no deformity. No lesions are appreciated. Cardiovascular: Regular rate and rhythm with a normal S1 and S2. No gallops, murmurs, or rubs. Normal PMI, no JVD. No pulse deficits. Respiratory: Lungs have equal breath sounds bilaterally, clear to auscultation and percussion. No rales, rhonchi or wheezes noted. No increased work of breathing, no retractions or nasal flaring. Abdomen/GI: Soft, non-tender, with normal bowel sounds. No distension or tympany. No guarding or rebound. No evidence of tenderness throughout. Back: No spinal tenderness. No costovertebral tenderness. Full range of motion. Male : Normal genitalia with no discharge or lesions. Skin: Warm, dry with normal turgor. Normal color with no rashes, no lesions, and no evidence of cellulitis. Neuro: Awake and alert, GCS 15, oriented to person, place, time, and situation. Cranial nerves II-XII grossly intact. Motor strength 5/5 in all extremities. Sensory grossly intact. Cerebellar exam normal. Normal gait. Psych: Awake, alert, with orientation to person, place and time. Behavior, mood, and affect are within normal limits. 13:20 ECG was reviewed by the Attending Physician. 13:20 Musculoskeletal/extremity: Extremities: grossly normal except: noted in the right hip: contusion, decreased ROM, pain, ROM: limited active range of motion due to pain, limited passive range of motion due to pain, Circulation is intact in all extremities. Sensation intact. Compartment Syndrome exam of affected extremity: is normal. Weight bearing: is unable to bear weight, DVT Exam: negative Homans' sign noted on exam, no appreciated bluish discoloration, no erythema, no increased warmth, pain, swelling, tenderness, Calves: are non-tender, have equal circumference, Vital Signs: 12:30 Resp 16; Weight 67.13 kg; Height 5 ft. 9 in. ; Pain 4/10; ss 12:39 BP 110 / 67; Pulse 70; Resp 18; Temp 97.6(TE); Pulse Ox 98% on R/A; ld1 15:32 BP 115 / 63; Pulse 61; Resp 17; Pulse Ox 100% on 2 lpm NC; ss 17:59 BP 113 / 60; Pulse 51; Resp 16; Pulse Ox 100% on 2 lpm NC; Pain 4/10; ss 12:30 Body Mass Index 21.86 (67.13 kg, 175.26 cm) ss 12:30 Pain Scale: Adult ss 17:59 Pain Scale: Adult ss MDM: 12:42 Patient medically screened. [facility] 03/29 12:44 Order name: Basic Metabolic Panel; Complete Time: 14:48 nikhil 03/29 12:44 Order name: CBC with Diff; Complete Time: 13:20 [facility] 03/29 12:44 Order name: LFT's; Complete Time: 14:48 [facility] 03/29 12:44 Order name: Magnesium; Complete Time: 14:48 nikhil 03/29 12:44 Order name: NT PRO-BNP; Complete Time: 14:48 nikhil 03/29 12:44 Order name: PT-INR; Complete Time: 13:20 [facility] 03/29 12:44 Order name: Troponin HS; Complete Time: 14:48 [facility] 03/29 12:44 Order name: Urinalysis w/ reflexes; Complete Time: 13:20 [facility] 03/29 12:44 Order name: Type And Screen; Complete Time: 14:48 [facility] 03/29 12:44 Order name: XRAY Chest (1 view); Complete Time: 14:48 03/29 12:44 Order name: Pelvis XRAY; Complete Time: 14:48 [facility] 03/29 12:44 Order name: Femur Right XRAY; Complete Time: 14:48 [facility] 03/29 12:44 Order name: Cardiac monitoring; Complete Time: 12:46 [facility] 03/29 12:44 Order name: EKG - Nurse/Tech; Complete Time: 12:46 [facility] 03/29 12:44 Order name: IV Saline Lock; Complete Time: 12:46 [facility] 03/29 12:44 Order name: Labs collected and sent; Complete Time: 12:46 [facility] 03/29 12:44 Order name: O2 Per Protocol; Complete Time: 12:46 [facility] 03/29 12:44 Order name: O2 Sat Monitoring; Complete Time: 12:46 [facility] EC:20 Rate is 66 beats/min. Rhythm is regular. QRS [place] is Normal. [place] interval is normal. QRS nikhil interval is normal. QT interval is normal. No Q waves. T waves are Normal. No ST changes noted. Clinical impression: NSR w/ Non-specific ST/T Changes and No evidence of ischemia. Interpreted by me. Reviewed by me. Administered Medications: 13:01 Drug: NS 0.9% IV 1000 ml IV at 125 ml/hr continuous Route: IV; Rate: 125 ml/hr; Site: ld1 left antecubital; Disposition Summary: 03/29/24 13:24 Transfer Ordered Notes: Transfer Location: Other Acute Care Facility nikhil Reason: Higher level of care nikhil Condition: Stable nikhil Problem: new nikhil Symptoms: have improved nikhil Accepting Physician: TO MS, RIGHT HIP FX(03/29/24 18:56) ll1 Diagnosis - Fall on same level, unspecified nikhil - Displaced fracture of greater trochanter of right femur, initial encounter for nikhil closed fracture Forms: - Medication Reconciliation Form nikhil - SBAR form nikhil Signatures: Dispatcher [employer] EDMS Maximilian Freedman MD MD cha Blanchard, Shelby, RN RN ss Lewis, Lynsay, RN RN ll1 Debby Jung RN RN ld1 Corrections: (The following items were deleted from the chart) 12:45 12:44 BASIC METABOLIC PANEL+C.LAB.BRZ ordered. EDMS EDMS 12:45 12:44 CBC+H.LAB.BRZ ordered. EDMS EDMS 12:45 12:44 HEPATIC FUNCTION+C.LAB.BRZ ordered. EDMS EDMS 12:45 12:44 MAGNESIUM+C.LAB.BRZ ordered. EDMS EDMS 12:45 12:44 PROBNP+C.LAB.BRZ ordered. EDMS EDMS 12:45 12:44 PROTIME (+INR)+COAG.LAB.BRZ ordered. EDMS EDMS 12:45 12:44 Troponin High Sensitivity+C.LAB.BRZ ordered. EDMS EDMS 12:45 12:44 Urinalysis+U.LAB.BRZ ordered. EDMS EDMS 12:45 12:45 Chest Single View+RAD.RAD.BRZ ordered. EDMS EDMS 12:45 12:45 Pelvis+RAD.RAD.BRZ ordered. EDMS EDMS 12:45 12:45 Femur Right+RAD.RAD.BRZ ordered. EDMS EDMS 12:45 12:45 TYPE AND SCREEN+BB.LAB.BRZ ordered. EDMS EDMS 12:57 12:35 Hip Right 2 View+RAD.RAD.BRZ ordered. EDMS EDMS 18:56 13:24 [facility], [facility] H[facility] nikhil ll1
--- NOTE | 2024-03-29 13:24 | ER ---
Nurse's Notes [facility] Name: Brian Avalos Age: 83 yrs Sex: Male : 1940 Arrival Date: 03/29/2024 Time: 12:23 Bed 4 Private MD: Diagnosis: Fall on same level, unspecified;Displaced fracture of greater trochanter of right femur, initial encounter for closed fracture Presentation: 03/29 12:30 Chief complaint: Patient states: R hip pain after mechanical fall last night. HX of ss bilateral hip replacement. Unable to get to phone until this afternoon. Coronavirus screen: Client denies travel out of the [place] in the last 14 days. Ebola Screen: Patient denies exposure to infectious person. Patient denies travel to an Ebola-affected area in the 21 days before illness onset. Initial Sepsis Screen: Does the patient meet any 2 criteria? No. Patient's initial sepsis screen is negative. Does the patient have a suspected source of infection? No. Patient's initial sepsis screen is negative. Risk Assessment: Do you want to hurt yourself or someone else? Patient reports no desire to harm self or others. Onset of symptoms was March 28, 2024. Care prior to arrival: Medication(s) given: Fentanyl 35 mcg IVP. 12:30 Method Of Arrival: EMS: [facility] 12:30 Acuity: AUNG 2 ss Historical: - Allergies: 12:33 Iodine; ss - Home Meds: 12:33 sertraline oral [Active]; latanoprost (bulk) [Active]; ss - PMHx: 12:33 Hyperlipidemia; ss - PSHx: 12:33 Bilateral hip replacement (Hyperlipidemia); ss - Immunization history:: Client reports receiving the 2nd dose of the Covid vaccine. - Infectious Disease History:: Denies. - Social history:: Smoking status: Patient denies any tobacco usage or history of. - Family history:: not pertinent. Screenin:35 [facility] ED Fall Risk Assessment (Adult) History of falling in the last 3 months, ss including since admission Yes- single mechanical fall (1 pt). [facility] ED Fall Risk Assessment (Adult) Confusion or Disorientation No (0 pts) Intoxicated or Sedated No (0 pts) Impaired Gait No (0 pts) Mobility Assist Device Used No (0 pt) Altered Elimination No (0 pt) Score/Fall Risk Level 0 - 2 = Low Risk Maintained a safe environment. Abuse screen: Denies threats or abuse. Denies injuries from another. Nutritional screening: No deficits noted. Tuberculosis screening: Never had TB. Assessment: 12:35 General: Appears in no apparent distress. comfortable, Behavior is calm, cooperative, ss joking with ED staff. Pain: Complains of pain in R hip Pain currently is 4 out of 10 on a pain scale. at worst was 8 out of 10 on a pain scale. Quality of pain is described as tender, Pain began last night after fall Is continuous. Neuro: Level of Consciousness is awake, alert, obeys commands, Oriented to person, place, time, situation, Gis Professor are equal bilaterally Speech is normal, Pupils are PERRLA. Cardiovascular: Pulses are palpable in right radial artery, right posterior tibial artery, left radial artery and left posterior tibial artery. Respiratory: Airway is patent Respiratory effort is even, unlabored, Respiratory pattern is regular, symmetrical. Derm: Skin is intact, is healthy with good turgor, Skin is dry, Skin is pink, warm \\T\\ dry. normal. Musculoskeletal: Swelling absent. 13:10 Reassessment: Pt resting at this time, eyes closed. RR even and unlabored. O2 ss saturation 94% while sleeping. NC \\T\\ 2L applied. Dr. Freedman notified. 13:17 Reassessment: Dr. Freedman at bedside to assess patient and discuss plan of care. 15:55 Reassessment: [phone] - allyson - daughter. ld1 17:40 Reassessment: Patient appears in no apparent distress at this time. Report called to joseph Davis RN at [facility] ER. Vital Signs: 12:30 Resp 16; Weight 67.13 kg; Height 5 ft. 9 in. ; Pain 4/10; ss 12:39 BP 110 / 67; Pulse 70; Resp 18; Temp 97.6(TE); Pulse Ox 98% on R/A; ld1 15:32 BP 115 / 63; Pulse 61; Resp 17; Pulse Ox 100% on 2 lpm NC; ss 17:59 BP 113 / 60; Pulse 51; Resp 16; Pulse Ox 100% on 2 lpm NC; Pain 4/10; ss 12:30 Body Mass Index 21.86 (67.13 kg, 175.26 cm) ss 12:30 Pain Scale: Adult ss 17:59 Pain Scale: Adult ss ED Course: 12:28 Patient arrived in ED. ss 12:33 Triage completed. ss 12:33 Arm band placed on right wrist. ss 12:35 Patient has correct armband on for positive identification. Placed in gown. Bed in low ss position. Call light in reach. Side rails up X2. 12:40 Maintain EMS IV. Dressing intact. Good blood return noted. Site clean \\T\\ dry. Gauge \\T\\ ss site: 20 gauge in L AC. 12:42 Maximilian Freedman MD is Attending Physician. nikhil 13:03 Debby Jung, JOSELITO is Primary Nurse. ld1 13:26 XRAY Chest (1 view) In Process Unspecified. EDMS 13:26 Pelvis XRAY In Process Unspecified. EDMS 13:26 Femur Right XRAY In Process Unspecified. EDMS 14:00 1335 [facility]. Talked to Giuliana. sp 14:01 faxed demographics, labs, nursing \\T\\ provider notes, \\T\\ xray report to [phone]. sp 15:04 called to verify [facility] received fax[facility] -- received and will call back. sp 15:55 called [facility] to [facility]. talked to Viktoria -- stated still "pending review". sp 16:38 Viktoria Cornelius called with [facility] approval [facility] the [facility] . Dr. Farooq Mack accepted sp without Doc to Doc per Viktoria. will go to the ER the report number [phone]. faxed MOT to [phone]. 17:42 called [facility] for Transfer. Talked to [facility] and will be here in 30 min. sp Administered Medications: 13:01 Drug: NS 0.9% IV 1000 ml IV at 125 ml/hr continuous Route: IV; Rate: 125 ml/hr; Site: ld1 left antecubital; Medication: 12:35 VIS not applicable for this client. ss Outcome: 13:24 ER care complete, transfer ordered by . nikhil 18:56 Patient left the ED. ll1 Signatures: Dispatcher [employer] EDMS Maximilian Freedman MD MD cha Pinkerton, Shawna sp Blanchard, Shelby, Malathi Bagley RN, RN RN ll1 Debby Jung, RN RN ld1
[2024-03-29 13:31] LABS: Albumin 3.4 g/dL (3.4-5.0); Albumin/Globulin Ratio 1.1 (1.1-1.8); Anion Gap 8.6 mEq/L (5.0-15.0); Bilirubin Direct 0.2 mg/dL (0-0.2); Bilirubin Indirect, Calculated 0.5 mg/dL (0.2-0.8); Bilirubin Total 0.7 mg/dL (0.2-1.0); Globulin 3.1 g/dL (2.3-3.5); Magnesium 1.8 mg/dL (1.6-2.4); Potassium 3.6 mEq/L (3.5-5.1); Protein, Total 6.5 g/dL (6.4-8.2); Troponin High Sensitivity 4.6 pg/mL (<58.9)
--- NOTE | 2024-03-29 13:49 | RAD REPORT ---
EXAM DESCRIPTION: RAD - Femur Right - 03/29/2024 1:24 pm CLINICAL HISTORY: Right hip pain FINDINGS: Right hip prosthesis is in place Moderately displaced acute fracture greater trochanter right femur No dislocation
--- NOTE | 2024-03-29 13:49 | RAD REPORT ---
EXAM DESCRIPTION: RAD - Pelvis - 03/29/2024 1:24 pm CLINICAL HISTORY: Pelvic pain status post injury FINDINGS: Bilateral hip arthroplasties Moderately displaced acute fracture greater trochanter right femur No dislocation
--- NOTE | 2024-03-29 13:50 | RAD REPORT ---
EXAM DESCRIPTION: Db Single View03/29/2024 1:24 pm CLINICAL HISTORY: Chest pain COMPARISON: 2020 FINDINGS: The lungs appear clear of acute infiltrate. The heart is normal size IMPRESSION: No acute abnormalities displayed
[2024-03-29 19:08] VITALS: BP 113/60; TEMP 97.6; O2SAT 100
--- NOTE | 2024-03-30 14:41 | EKG ---
Test Date: 2024-03-29 Test Time: 12:29:00 Cloth Tester: SARKIS MEASUREMENT RESULTS: Intervals: Rate: 66 NJ: 186 QRSD: 100 QT: 452 QTc: 473 [place]: P: 58 NJ: 186 QRS: -41 T: 66 INTERPRETIVE STATEMENTS: Normal sinus rhythm Left axis deviation Septal infarct, age undetermined Abnormal ECG Compared to ECG 10/25/2015 08:50:37 Left-axis deviation now present Myocardial infarct finding now present T-wave abnormality no longer present Electronically Signed On 03-30-24 14:37:59 CDT by Andrzej Foreman
== END 2024-03-29 18:56 ==
LOC: ER 12:23
DX: S72.111A Displaced fracture of greater trochanter of right femur, initial encounter for closed fracture (principal); W18.30XA Fall on same level, unspecified, initial encounter; Z96.643 Presence of artificial hip joint, bilateral; Z91.048 Other nonmedicinal substance allergy status
CPT/HCPCS: 93005; 85025; 80048; 36415; 86900; 83735; 86850; 85610; 86901; 80076; 81003; 84484; 83880; 71045; 72170; 73552; 99284; J7030